=== PATIENT | male | born 1995 | race Caucasian/White ===

== ENCOUNTER 2018-03-12 17:17 | Emergency (ER) | payer BC, SELFPAY ==
[2018-03-12 17:18] VITALS: BP 137/74; PULSE 72; RESP 18; TEMP 36.9; O2SAT 99; BMI 27.9
--- NOTE | 2018-03-12 18:00 | ED.RN ---
CONTACTED CRISIS, MICHELL WILL BE OVER.
[2018-03-12 18:28] LABS: Absolute Lymphocyte Count 1.66 X10^3/ul (0.83-4.51); Absolute Neutrophil Count 2.9 X10^3/uL (2.0-7.7); Basophil# 0.02 X10^3/uL; Basophil% 0.4 % (0-1); Eosinophil# 0.16 X10^3/uL; Eosinophils% 2.9 % (0-5); Hematocrit 44.3 % (40-54); Hemoglobin 15.6 g/dl (13.0-16.5); Lymphocyte # 1.66 X10^3/ul (4.0); Lymphocyte % 30.2 % (19-41); Mean Corp Hgb Conc 35.2 g/gl (32-36); Mean Corpuscular Hgb 29.4 pg (27.0-32.0); Mean Corpuscular Volume 83.6 fL (80-94); Monocyte# 0.75 X10^3/uL; Monocyte% 13.6 % (0-10); Neutrophil % 52.7 % (47-70); Platelet Count 183 K/mm3 (150-450); RBC Distribution Width CV 11.8 % (11.6-14.6); RBC Distribution Width SD 35.9 fl (35.1-43.9); White Blood Count 5.5 K/mm3 (4.4-11.0)
[2018-03-12 18:29] LABS: POSITIVE COUNT NO; POSITIVE DIFFERENTIAL NO; POSITIVE MORPHOLOGY NO
[2018-03-12 18:44] VITALS: BP 130/74; PULSE 80; RESP 18; O2SAT 99
[2018-03-12 18:53] LABS: ALB/GLOB Ratio 1.4 RATIO (0.9-2.4); AST(SGOT) 14 U/L (15-37); Alanine Aminotransfer ALT/SGPT 25 U/L (16-61); Albumin, Serum 4.6 g/dL (3.2-5.0); Alkaline Phosphatase 66 U/L (45-117); Anion Gap 10 (5-15); BUN 18 mg/dL (7-18); BUN/Creat Ratio 14.2 RATIO (10-20); Calcium,Total 8.9 mg/dL (8.5-10.1); Chloride 103 mmol/L (98-107); Creatinine, Serum 1.27 mg/dL (0.70-1.30); EST Glomerular Filtration Rate 75 mL/min (>60); Est Glom Filt Rate - Afr Amer 91 mL/min (>60); Estimated Creatinine Clearance 88.27 ml/min; Globulin 3.2 g/dL (2.2-4.2); Glucose 88 mg/dL (74-106); Potassium 3.6 mmol/L (3.5-5.1); Protein, Total 7.8 g/dL (6.4-8.2); Sodium Level 142 mmol/L (136-145); Thyroid Stim Hormone (TSH) 0.69 uIU/mL (0.358-3.74)
--- NOTE | 2018-03-12 18:59 | ED.RN ---
CRISIS IS HERE.
[2018-03-12 19:00] LABS: Alcohol, Blood (Medical)-Serum < 3.0 mg/dL
[2018-03-12 19:30] LABS: Amphetamine Urine VISTA POSITIVE (<1000 ng/mL); Barbiturate Urine VISTA NEGATIVE (< 200 ng/mL); Benzodiazepine Urine VISTA NEGATIVE (< 200 ng/mL); Cocaine Urine VISTA POSITIVE (< 300 ng/mL); Ecstacy Urine VISTA NEGATIVE (< 500 ng/mL); Methadone Urine VISTA NEGATIVE (< 300 ng/mL); PCP Urine VISTA NEGATIVE (< 25 ng/mL); THC Urine VISTA POSITIVE (< 50 ng/mL); Vista UDS pH Range 6
[2018-03-12 19:37] VITALS: RESP 16
[2018-03-12 20:11] VITALS: RESP 14
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
[2018-03-12 21:59] VITALS: RESP 18
== END 2018-03-12 22:01 | disposition home or self-care (01) ==
PROVIDERS: Emergency Provider Emergency Medicine; Family Provider Family Medicine; PCP Family Medicine
DX: F32.9 Major depressive disorder, single episode, unspecified (principal); G47.00 Insomnia, unspecified; R63.0 Anorexia; R00.2 Palpitations; R51 Headache; T43.625A Adverse effect of amphetamines, initial encounter; Y92.9 Unspecified place or not applicable; Z79.899 Other long term (current) drug therapy
CPT/HCPCS: 36415; 80053; 80307; 80320; 84443; 85025; 99283; G0480

== ENCOUNTER → 2018-07-09 14:32 | Outpatient (CLI) | payer BC, SELFPAY ==
[2018-07-09 16:06] LABS: Absolute Lymphocyte Count 1.69 X10^3/ul (0.83-4.51); Basophil# 0.02 X10^3/uL; Basophil% 0.4 % (0-1); Eosinophil# 0.19 X10^3/uL; Eosinophils% 3.5 % (0-5); Hematocrit 44.2 % (40-54); Hemoglobin 14.9 g/dl (13.0-16.5); Lymphocyte # 1.69 X10^3/ul (4.0); Lymphocyte % 30.8 % (19-41); Mean Corp Hgb Conc 33.7 g/gl (32-36); Mean Corpuscular Hgb 28.8 pg (27.0-32.0); Mean Corpuscular Volume 85.3 fL (80-94); Mean Platelet Vol. 9.5 fl (6.2-12.0); Monocyte# 0.58 X10^3/uL; Monocyte% 10.6 % (0-10); Neutrophil % 54.5 % (47-70); Platelet Count 249 K/mm3 (150-450); RBC Distribution Width CV 11.9 % (11.6-14.6); RBC Distribution Width SD 37.1 fl (35.1-43.9); Red Blood Count 5.18 M/mm3 (4.6-6.2); White Blood Count 5.5 K/mm3 (4.4-11.0)
[2018-07-09 16:15] LABS: POSITIVE COUNT NO; POSITIVE DIFFERENTIAL NO; POSITIVE MORPHOLOGY NO
[2018-07-09 16:21] LABS: ALB/GLOB Ratio 1.2 RATIO (0.9-2.4); AST(SGOT) 10 U/L (15-37); Alanine Aminotransfer ALT/SGPT 22 U/L (16-61); Albumin, Serum 4.1 g/dL (3.2-5.0); Alkaline Phosphatase 70 U/L (45-117); Anion Gap 8 (5-15); BUN 19 mg/dL (7-18); BUN/Creat Ratio 16.7 RATIO (10-20); CRP < 2.90 mg/L (0.0-3.0); Calcium,Total 9.1 mg/dL (8.5-10.1); Chloride 106 mmol/L (98-107); Creatinine, Serum 1.14 mg/dL (0.70-1.30); EST Glomerular Filtration Rate 85 mL/min (>60); Est Glom Filt Rate - Afr Amer 103 mL/min (>60); Ferritin 169 ng/mL (26-388); Globulin 3.3 g/dL (2.2-4.2); Glucose 79 mg/dL (74-106); Lipase 126 U/L (73-393); Potassium 3.8 mmol/L (3.5-5.1); Protein, Total 7.4 g/dL (6.4-8.2); Sodium Level 141 mmol/L (136-145); Thyroid Stim Hormone (TSH) 1.67 uIU/mL (0.358-3.74)
[2018-07-09 16:35] LABS: Erythrocyte Sedimentation Rate 2 mm/hr (0-15)
[2018-07-11 20:07] LABS: Endomysial Antibody IgA Negative (Negative); HEPATITIS B SURFACE AG Negative (Negative); Hepatitis A AB, Total Negative (Negative); Hepatitis A IgM Antibody Negative (Negative); Hepatitis B Core AB IgM Negative (Negative); Hepatitis B Core Ab Total Negative (Negative); Hepatitis C Ab <0.1 s/co ratio (0.0-0.9); Immunoglobulin A 116 mg/dL (90-386)
[2018-07-12 12:32] LABS: Deamidated Gliadin IgA 4 units (0-19); Deamidated Gliadin IgG 4 units (0-19); Hep B Surface Antibodies Non Reactive (.); t-Transglutaminase IgA <2 U/mL (0-3)
== END ==
PROVIDERS: Family Provider Family Medicine; PCP Family Medicine; Referring Provider Family Medicine; Visit Provider Family Medicine
DX: R19.7 Diarrhea, unspecified (principal); R10.32 Left lower quadrant pain
CPT/HCPCS: 80053; 82728; 82784; 83516; 83690; 84443; 85025; 85652; 86140; 86255; 86704; 86705; 86706; 86708; 86709; 86803; 87340

== ENCOUNTER → 2018-10-07 16:00 | Outpatient (CLI) | payer BC, SELFPAY ==
[2018-10-07 17:33] LABS: Hematocrit 44.3 % (40-54); Mean Corp Hgb Conc 33.9 g/gl (32-36); Mean Corpuscular Hgb 28.9 pg (27.0-32.0); Mean Corpuscular Volume 85.4 fL (80-94); Mean Platelet Vol. 9.7 fl (6.2-12.0); Platelet Count 223 K/mm3 (150-450); RBC Distribution Width CV 12.2 % (11.6-14.6); RBC Distribution Width SD 37.8 fl (35.1-43.9); Red Blood Count 5.19 M/mm3 (4.6-6.2); White Blood Count 6.5 K/mm3 (4.4-11.0)
[2018-10-07 17:49] LABS: ALB/GLOB Ratio 1.2 RATIO (0.9-2.4); AST(SGOT) 15 U/L (15-37); Alanine Aminotransfer ALT/SGPT 25 U/L (16-61); Alkaline Phosphatase 77 U/L (45-117); Anion Gap 10 (5-15); BUN 12 mg/dL (7-18); Calcium,Total 8.9 mg/dL (8.5-10.1); Chloride 106 mmol/L (98-107); Creatinine, Serum 0.92 mg/dL (0.70-1.30); EST Glomerular Filtration Rate 108 mL/min (>60); Est Glom Filt Rate - Afr Amer 131 mL/min (>60); Globulin 3.3 g/dL (2.2-4.2); Glucose 77 mg/dL (74-106); Potassium 3.9 mmol/L (3.5-5.1); Protein, Total 7.3 g/dL (6.4-8.2); Sodium Level 141 mmol/L (136-145)
[2018-10-07 17:59] LABS: Erythrocyte Sedimentation Rate 8 mm/hr (0-15)
[2018-10-07 18:02] LABS: Internal QC Validated? YES +Cl - CLEAR BKGD; Monotest Negative (Negative)
[2018-10-07 18:04] LABS: Scan Indicated on CBC? Y/N NO
[2018-10-10 11:19] LABS: CMV Acute Antibody IgM < 30.0 AU/mL (0.0-29.9); CMV Antibody IgG < 0.60 U/mL (0.00-0.59); EBV Acute VCA IgM < 36.0 U/mL (0.0-35.9); EBV Early Antigen IgG <9.0 U/mL (0.0-8.9)
== END ==
PROVIDERS: Family Provider Family Medicine; PCP Family Medicine; Visit Provider Family Medicine
DX: J02.9 Acute pharyngitis, unspecified (principal)
CPT/HCPCS: 36415; 80053; 85027; 85652; 86308; 86644; 86645; 86663; 86664; 86665; 87070

== ENCOUNTER → 2018-10-12 09:10 | Outpatient (CLI) | payer BC, SELFPAY ==
--- NOTE | 2018-10-12 09:14 | US_ITS ---
STUDY: ABDOMINAL ULTRASOUND -LEFT UPPER QUADRANT REASON FOR VISIT: Male, 22 years old. Recent exposure to mononucleosis, left upper quadrant pain TECHNIQUE: Ultrasound evaluation of the right upper quadrant was performed with real-time and static ayala-scale imaging. TECHNICAL QUALITY: Limited. Limited acoustical window between ribs. COMPARISON: None. FINDINGS: Spleen: The spleen measures 10.5 x 7.8 x 3.6 cm. There is normal echogenicity of the spleen. No perisplenic fluid collection. There is no demonstrated mass lesion. US/Spleen IMPRESSION: Normal sonographic appearance of the spleen. Electronically Signed: Dung Hernandez MD at 12:20 EST , Service support ,
--- NOTE | 2018-10-12 09:14 | US_ITS ---
STUDY: ABDOMINAL ULTRASOUND - RIGHT UPPER QUADRANT REASON FOR VISIT: Male, 22 years old. Right upper quadrant pain, emesis a week ago TECHNIQUE: Ultrasound evaluation of the right upper quadrant was performed with real-time and static ayala-scale imaging. TECHNICAL QUALITY: Adequate. COMPARISON: None. FINDINGS: Liver: The liver measures 14 cm. There is normal echogenicity of the liver. The bile ducts are within normal limits. There is hepatic color flow. The direction of portal flow is hepatopetal. There is no demonstrated mass lesion. Gallbladder: Normal distended gallbladder. The gallbladder wall measures 2.4 mm. There is a negative sonographic Adams's sign. There is no pericholecystic fluid. There are no gallstones. Common Bile Duct (C.B.D.): The common bile duct measures 5.7 mm. Pancreas: There is normal echogenicity of the visualized pancreas. There is no demonstrated pancreatic mass or cyst. Right Kidney: Normal size of the right kidney. The right kidney measures 11.4 cm. Normal renal cortex. The right cortex measures 1.7 cm. There is no demonstrated renal mass or cyst. There is no right hydronephrosis. US/Abdomen Limited IMPRESSION: 1. Normal right upper quadrant ultrasound examination. Electronically Signed: Dung Hernandez MD at 12:19 EST , Service support ,
== END ==
PROVIDERS: Family Provider Family Medicine; PCP Family Medicine; Referring Provider Family Medicine; Visit Provider Family Medicine
DX: R10.811 Right upper quadrant abdominal tenderness (principal)
CPT/HCPCS: 76705

== ENCOUNTER → 2018-11-25 12:42 | Outpatient (CLI) | payer BC, SELFPAY ==
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
== END ==
PROVIDERS: Family Provider Family Medicine; PCP Family Medicine; Referring Provider Family Medicine; Visit Provider Family Medicine
DX: S60.012A Contusion of left thumb without damage to nail, initial encounter (principal); X58.XXXA Exposure to other specified factors, initial encounter; Y93.9 Activity, unspecified; Y92.9 Unspecified place or not applicable; Y99.9 Unspecified external cause status
CPT/HCPCS: 73130

== ENCOUNTER 2019-05-20 16:18 | Emergency (ER) | payer BC, SELFPAY ==
[2019-05-20 16:18] VITALS: BP 136/83; PULSE 74; RESP 16; TEMP 36.8; O2SAT 98; BMI 32.4
--- NOTE | 2019-05-20 17:08 | ED.DCSUM_ITS ---
History of Present Illness Chief Complaint: Laceration Informant: Patient Onset: Today - 07:00 Context: Sudden Onset Timing: Continuous Quality: Laceration tip right thumb Location: Tip right norm Current Severity: Mild Maximum Severity: Mild Worsened by: Blunt trauma Relieved by: Nothing Associated Symptoms: No associated symptoms Narrative: Patient is a 23-year-old [id number] male presents with laceration the tip of his right thumb. The occurred at 0700. States his thumb was pinched between doorframe and door. Tetanus is not up-to-date. He denies paresthesia, anesthesia motors. He is a construction equipment mechanic helper. He was able to work today without limitations. Prior similar symptoms: No Recent Illness/Hospitalization: No - Past Medical History (1) No significant past medical history Status: Acute Past Medical History - Allergies and Home Meds Allergies/Adverse Reactions: Allergies No Known Allergies Allergy (Verified 05/20/19 16:20) Primary Care Physician: Bony Magallon MD [Primary Care Provider] - Prior records reviewed: No Past Medical History: None Surgical History: no surgical history, - - Left shoulder labral repair ?2 (Dr. Daniels) Lives: Alone Smoking Status: Never smoker Drugs: None Review of Systems General: Denies: Chills, Fever Musculoskeletal: Denies: Myalgias, Arthralgias, Swelling, Extremity Pain Skin: Reports: Wounds. Denies: Rash, Abscess Neurological: Denies: Weakness, Parasthesia, Numbness Hematologic: Denies: Easy bruising, Easy bleeding Physical Exam Vital Signs/Narrative: Vital Signs Temp Pulse Resp BP Pulse Ox 05/20/19 16:18 98.2 F 74 16 136/83 H 98 General: Well nourished, Well developed, No Acute Distress Head: Normocephalic, Atraumatic Eyes: Perrl, EOMI ENT: Moist mucous membranes, No rhinorrhea Cardiovascular: Regular rate, Regular rhythm Respiratory: No distress Extremities: Nontender, No edema Skin: Normal color, No rash, Trauma, -. Negative for: Cyanosis, Diaphoresis, Jaundice Neurological: Alert, Oriented x3, Cranial nerves II-XII grossly intact, Normal Strength, Normal Sensation Psychological: Normal affect, Normal Mood Diagnostic/Tx/Re-eval - Medical Decision Making Patient has a laceration which is less than 1 cm Tip of the right thumb. The wound is healthy with dark. There is concern for early infection. There is no evidence of cellulitis and there is no lymphangitis. There is no subungual hematoma noted. Extensor and flexor mechanism intact. Capillary refill is normal. Sensation is normal. Will update tetanus. He was prescribed cephalexin and wound was not sutured closed since the injury occurred 10 hours ago and is concern for infection ED Disposition - Plan for ED Patient: Disposition: Home or Assisted Living Diagnosis: Laceration of right thumb with infection Instructions: LACERATION, Infected (Not Sutured) Prescriptions: Cephalexin [Keflex] 500 mg PO Q6 #20 cap Prescription Printed Referrals: Bony Magallon MD [Primary Care Provider] - 2 Days for wound check
[2019-05-20] MEDS: Cephalexin 250 MG Capsule 500 MG PO (17:22)
[2019-05-20] MEDS: Diphth,Pertuss(Acell),Tet Vac 0.5 ML Vial IM (17:23)
== END 2019-05-20 17:32 | disposition home or self-care (01) ==
LOC: ED 17:24
PROVIDERS: Emergency Provider Emergency Medicine; Family Provider Family Medicine; PCP Family Medicine
DX: S61.011A Laceration without foreign body of right thumb without damage to nail, initial encounter (principal); B99.9 Unspecified infectious disease; W23.0XXA Caught, crushed, jammed, or pinched between moving objects, initial encounter; Y93.9 Activity, unspecified; Y92.9 Unspecified place or not applicable; Y99.9 Unspecified external cause status; Z23 Encounter for immunization
CPT/HCPCS: 90471; 90715; 99282

== ENCOUNTER 2020-12-20 14:48 | Emergency (ER) | payer BC, SELFPAY ==
[2020-12-20 14:49] VITALS: BP 158/86; PULSE 84; RESP 18; TEMP 36.4; O2SAT 97; BMI 36.2
[2020-12-20 15:16] LABS: Absolute Lymphocyte Count 1.54 X10^3/uL (0.83-4.51); Absolute Neutrophil Count 5.1 X10^3/uL (2.0-7.7); Basophil# 0.03 X10^3/uL; Basophil% 0.4 % (0-1); Eosinophil# 0.08 X10^3/uL; Hemoglobin 15.8 g/dL (13.0-16.5); Lymphocyte # 1.54 X10^3/ul (4.0); Mean Corp Hgb Conc 34.3 g/dL (32-36); Mean Corpuscular Volume 81.6 fL (80-94); Mean Platelet Vol. 9.2 fl (6.2-12.0); Monocyte# 0.85 X10^3/uL; Monocyte% 11.1 % (0-10); NRBC Flagged by Analyzer 0 % (0-5); Neutrophil # 5.12 X10^3/uL (2.7-7.7); Neutrophil % 66.6 % (47-70); Platelet Count 254 K/mm3 (150-450); RBC Distribution Width CV 11.9 % (11.6-14.6); Red Blood Count 5.64 M/mm3 (4.6-6.2); White Blood Count 7.7 K/mm3 (4.4-11.0)
[2020-12-20 15:30] LABS: Anion Gap 5 (5-15); BUN 13 mg/dL (7-18); BUN/Creat Ratio 14.2 RATIO (10-20); Calcium,Total 9.3 mg/dL (8.5-10.1); Chloride 104 mmol/L (98-107); Creatinine, Serum 0.92 mg/dL (0.70-1.30); EST Glomerular Filtration Rate 107 mL/min (>60); Est Glom Filt Rate - Afr Amer 129 mL/min (>60); Estimated Creatinine Clearance 118.75 ml/min; Glucose 97 mg/dL (74-106); Potassium 3.5 mmol/L (3.5-5.1); Sodium Level 136 mmol/L (136-145)
[2020-12-20 15:52] LABS: Red Blood Cells-Urine 0 SEEN /hpf (0-5); Squamous Epithelial Cells - UA 0 SEEN /hpf (0-5); White Blood Cells 0 SEEN /hpf (0-5)
[2020-12-20 15:54] LABS: Color, Urine Yellow (Yellow); Glucose, Dipstick Normal (Normal); Ketone-Dipstick Negative (Negative); Leukocyte Esterase-Dipstick Negative /ul (Negative); Nitrite-Dipstick Negative (Negative); Occult Blood-Urine Negative /ul (Negative); Protein-Dipstick 15 mg/dl (Negative); Specific Gravity, Urine 1.025 (1.002-1.030); Urine Bilirubin Dipstick Negative (Negative); Urine Clarity Clear (Clear); Urine Urobilinogen Normal (Normal)
--- NOTE | 2020-12-20 16:10 | CT_ITS ---
STUDY: CT ABDOMEN AND PELVIS WITH CONTRAST REASON FOR EXAM: Male, 25 years old. RLQ Pain RADIATION DOSAGE (If Supplied By Facility): CTDIvol = ( 13.915 ) mGy, DLP = ( 1045.99 ) mGycm TECHNIQUE: Transaxial images were obtained from the dome of the diaphragm to the symphysis pubis with oral contrast. Oral and amp; IV GASTROGRAFIN and amp; 100ML ISOVUE 300 was administered. Sagittal and coronal images were reconstructed. Individualized dose optimization techniques were used for this CT. COMPARISON: Previous ultrasounds FINDINGS: The visualized lung bases are unremarkable. The visualized portions of the heart are within normal limits. Normal liver. Normal gallbladder and extrahepatic biliary system. Normal spleen. Normal pancreas. Normal bilateral adrenal glands. Normal right kidney. Normal left kidney. Normal visualized stomach. Normal small intestine. Retained stool noted throughout the colon The appendix is visualized and appears normal. Appendix best seen on coronal recon images 65 through 70 Normal abdominal aorta. Normal inferior vena cava. Normal retroperitoneum. Normal urinary bladder. Normal abdominal wall. Normal osseous structures. CT/Abdomen/Pelvis WITH Contrast IMPRESSION: No suspicious solid organ abnormality No free intraperitoneal fluid, air, or suspicious adenopathy Retained stool in the colon Electronically Signed: Davion Ruby MD at 19:08 EDT , Service support ,
--- NOTE | 2020-12-20 16:12 | ED.DCSUM_ITS ---
History of Present Illness Chief Complaint: Abd Pain Informant: Patient Narrative: 25-year-old male presenting with right lower quadrant pain since . He states is progressively worse. Started off with diarrhea. He states he had a low-grade fever at home of 99.5. Seems to have resolved. She has nausea without vomiting. He states his pain is 6 out of 10. No history of kidney stones. Past Medical History - Allergies and Home Meds Allergies/Adverse Reactions: Allergies No Known Allergies Allergy (Verified 12/20/20 14:52) Primary Care Physician: Bony Magallon MD [Primary Care Provider] - Prior records reviewed: Yes Surgical History: no surgical history, - - Left shoulder labral repair ?2 (Dr. Daniels) Lives: Alone Smoking Status: Current some day smoker Alcohol: None Drugs: None Review of Systems General: Reports: Fever. Denies: Malaise Eyes: Denies: Visual changes - bilaterally, Diplopia ENT: Denies: Rhinorrhea, Sore throat Cardiovascular: Denies: Chest pain, Palpitations Respiratory: Denies: Dyspnea, Cough, Dyspnea on exertion Gastrointestinal: Reports: Abdominal pain, Nausea, Diarrhea. Denies: Vomiting, Constipation Genitourinary: Reports: Dysuria. Denies: Hematuria, Frequency Musculoskeletal: Denies: Back pain, Extremity Pain Skin: Denies: Rash, Wounds Neurological: Denies: Headache, Weakness, Numbness Psych: Denies: Depression, Anxiety, Suicidal thoughts, Suicidal ideations, -, - Physical Exam Vital Signs/Narrative: Vital Signs Temp Pulse Resp BP Pulse Ox 12/20/20 14:49 97.5 F L 84 18 158/86 H 97 Inital Vital Signs reviewed: Yes General: Well nourished, No Acute Distress Head: Normocephalic, Atraumatic Eyes: Perrl, EOMI ENT: Moist mucous membranes, Sinus tenderness Neck: Supple, Nontender Cardiovascular: Regular rate, Regular rhythm Respiratory: No distress, CTA bilaterally Abdomen: Soft, Nondistended, Obturator sign, - - Tenderness palpation of McBurney's point. Rectal: Deferred, Guaiac negative Back: Negative for: CVA tenderness, Spinal tenderness Extremities: Nontender, No edema Skin: Normal color, No rash Neurological: Alert, Oriented x3, Cranial nerves II-XII grossly intact Psychological: Normal affect, Normal Mood Diagnostic/Tx/Re-eval Clinical Impression(s) from Imaging Studies Abdomen/Pelvis CT 12/20/20 16:10 IMPRESSION: No suspicious solid organ abnormality No free intraperitoneal fluid, air, or suspicious adenopathy Retained stool in the colon Electronically Signed: Davion Ruby MD at 19:08 EDT , Service support , Laboratory Data 12/20/20 12/20/20 12/20/20 14:59 14:59 15:47 WBC 7.7 RBC 5.64 Hgb 15.8 Hct 46.0 MCV 81.6 MCH 28.0 MCHC 34.3 RDW Std Deviation 35.0 L RDW Coeff of [place] 11.9 Plt Count 254 MPV 9.2 Immature Gran % (Auto) 0.900 Neut % (Auto) 66.6 Lymph % (Auto) 20.0 [place] % (Auto) 11.1 H Eos % (Auto) 1.0 Baso % (Auto) 0.4 Absolute Neuts (auto) 5.1 Absolute Lymphs (auto) 1.54 Nucleated RBC % 0 Sodium 136 Potassium 3.5 Chloride 104 Carbon Dioxide 27.0 Anion Gap 5 BUN 13 Creatinine 0.92 Estim Creat Clear Calc 118.75 Est GFR (MDRD) Af Amer 129 Est GFR (MDRD) Non-Af 107 BUN/Creatinine Ratio 14.2 Glucose 97 Calcium 9.3 Urine Color Yellow Urine Clarity Clear Urine pH 5.0 Ur Specific [place] 1.025 Urine Protein 15 H Urine Glucose (UA) Normal Urine Ketones Negative Urine Occult Blood Negative Urine Nitrite Negative Urine Bilirubin Negative Urine Urobilinogen Normal Ur Leukocyte Esterase Negative Urine RBC 0 SEEN Urine WBC 0 SEEN Ur Squamous Epith Cells 0 SEEN Urine Bacteria 1+ Urine Mucus 1+ - Medical Decision Making 25-year-old male presenting with right lower quadrant pain. He states that he was seen in urgent care and sent to the ED out of concern for appendicitis. Vital signs are stable he is afebrile. Patient's blood work is all within normal limits. Patient had CT of abdomen pelvis with p.o. and IV contrast which shows concern for constipation. Appendix is visualized and is normal. Patient given magnesium citrate in the ED and given instructions for use. He will be discharged home in stable condition. Impression: 1. Abdominal pain 2. Constipation ED Disposition - Plan for ED Patient: Instructions: ED Constipation (Adult) Referrals: Bony Magallon MD [Primary Care Provider] -
[2020-12-20 16:34] LABS: Bacteria 1+ /hpf (None Seen); Mucous, Urine 1+ /hpf (<or=2+)
[2020-12-20] MEDS: Morphine 4 MG/ML Syringe IV (16:40)
[2020-12-20] MEDS: Ondansetron 4 MG/2 ML Vial IV (16:40)
[2020-12-20] MEDS: 0.9% Normal Saline 1,000 ML 999 ML IV (16:40)
[2020-12-20 16:48] VITALS: BP 148/72; PULSE 81; RESP 18; O2SAT 98
[2020-12-20 18:00] VITALS: BP 126/87; PULSE 69; RESP 18; O2SAT 100
[2020-12-20] MEDS: Magnesium Citrate 300 ML PO (19:35)
== END 2020-12-20 19:36 | disposition home or self-care (01) ==
LOC: ED 16:30
PROVIDERS: Emergency Provider Student in an Organized Health Care Education/Training Program; PCP Family Medicine
DX: R10.31 Right lower quadrant pain (principal); K59.00 Constipation, unspecified; R19.7 Diarrhea, unspecified; R50.9 Fever, unspecified; R11.0 Nausea; R30.0 Dysuria; F17.200 Nicotine dependence, unspecified, uncomplicated
CPT/HCPCS: 74177; 80048; 81001; 85025; 96361; 96374; 96375; 99283; J7030; Q9967; A4216; J2405

== ENCOUNTER 2023-07-06 16:57 | Emergency (ER) | payer OTHER, SELFPAY ==
[2023-07-06 16:58] VITALS: BP 137/89; PULSE 80; RESP 16; TEMP 36.6; O2SAT 98; BMI 35.7
--- NOTE | 2023-07-06 17:12 | US_ITS ---
INDICATION: ;LT TESTICLE PAIN AFTER HEAVY LIFTING EXAMINATION: Ultrasound US Scrotum (Contents) TECHNIQUE: Realtime ultrasound of the testicles was performed with grayscale, Color Doppler and spectral Doppler analysis. COMPARISON: FINDINGS: RIGHT: TESTIS: 4.8 x 3.5 x 2.4 cm. Normal in size and echotexture, without focal lesion. COLOR DOPPLER: Normal arterial flow present in the testicle with monophasic waveforms. EPIDIDYMIS: Normal in size and echotexture, without focal lesion. [Normal color Doppler flow pattern in the epididymis. HYDROCELE: Mild. VARICOCELE: None. LEFT: TESTIS: 4.5 x 2.9 x 2.0 cm. Normal in size and echotexture, without focal lesion. COLOR DOPPLER: Normal arterial flow present in the testicle with monophasic waveforms. EPIDIDYMIS: Normal in size and echotexture, without focal lesion. [Normal color Doppler flow pattern in the epididymis. HYDROCELE: Moderate complex with debris. VARICOCELE: None. US/Testicular with Arterial Flow IMPRESSION: Unremarkable bilateral testicular ultrasound. Small right hydrocele. Complex moderate left hydrocele with debris. Electronically Signed: Miguel Eduardo DO at 17:50 EDT Reading Location ID and State: [facility] / [place] Tel [phone], Service support ,
--- NOTE | 2023-07-06 18:09 | EX.ED.GUMALE ---
HPI History of Present Illness Chief Complaint: Male Pain/Injury PFSH PFS Home Medications NK 12/20/20 [History Last Taken Unknown] Allergy/AdvReac Type Severity Reaction Status Date / Time No Known Allergies Allergy Verified 07/06/23 16:58 Social History Smoking Status: Current some day smoker tobacco type: cigarettes EXAM Physical Exam Const Vital Signs: 07/06/23 16:58 Temperature 97.8 F Temperature Source Temporal Pulse Rate 80 Respiratory Rate 16 Blood Pressure 137/89 H Blood Pressure Mean 105 Pulse Ox 98 Oxygen Delivery Method Room Air [facility] [place] Narrative Medical decision making narrative: HISTORY OF PRESENT ILLNESS: 27-year-old male here with concern for testicular pain. States he was lifting heavy object and felt a pop. He was seen by urgent care was sent into the ED for an ultrasound. Patient with severe left inguinal/testicular pain. Worse with movement or palpation. Denies history abdominal surgeries. REVIEW OF SYSTEMS: Pertinent positives: Testicular pain, abdominal pain Pertinent negatives: Nausea, fever PHYSICAL EXAM: Nursing triage notes reviewed, Vital signs reviewed Constitutional: please see mdm HENT: MMM Eyes: Pupils equal round and reactive to light, Extraocular muscles intact Neck: No stridor, no JVD, full neck ROM Lungs: Clear to auscultation, No wheezing or rales. No increased work of breathing, no conversational dyspnea, no accessory muscle use, no nasal flaring. No respiratory distress noted Heart: Regular rate and rhythm, No murmurs, No rubs and No gallops, 2+ distal pulses (radial, femoral, posterior tibial) in all extremities Abdomen: Soft, there is no tenderness, no obvious hernia noted, no overlying skin changes rigidity, rebound or guarding, no obvious peritoneal signs, no palpable pulsatile abdominal masses, no auscultated abdominal bruit : No CVAT left testicular TTP, normal testicular lie, Extremities: No edema Neuro: No focal neurological deficits, cranial nerves II through XII intact, 5/5 strength in all extremities. Intact sensation to light touch in all extremities, 2+ reflexes bilateral patella tendons. Normal gait. No ataxia. Skin: No rash or lesions noted MEDICAL DECISION MAKING: Chief Complaint: Testicular pain External records reviewed: No recent advanced imaging of the testicle noted Factors affecting care: none Social determinants of health: none History obtained from others: none Consults: none [facility] Narrative: Hemodynamically stable, afebrile, nontoxic-appearing. Abdominal exam with no peritoneal signs, TTP over left testicle with no palpable herniated mass. I considered the following differential diagnosis: Testicular torsion, orchitis, epididymitis, incarcerated hernia, muscle strain I obtained a broad lab and imaging work-up to further elucidate etiology patient complaints. Give the patient IV fluids and Toradol for pain control and rehydration ALL IMAGES (IF OBTAINED) HAVE BEEN PERSONALLY REVIEWED AND INTERPRETED BY MYSELF. CBC without leukocytosis, severe anemia, no thrombocytopenia. BMP without evidence of significant electrolyte abnormalities, no anion gap, no acute kidney injury. Urinalysis shows no evidence of urinary inflammation suggestive of UTI CT scan of the abdomen pelvis shows acute intra-abdominal abnormalities Scrotal ultrasound shows no evidence of orchitis shows evidence of a left hydrocele The synthesis of the patient's history, physical exam, labs and images suggest no acute life-limiting etiology specifically no evidence of incarcerated hernia, testicular torsion. Etiology could be hydrocele. The patient may still have abdominal herniation however there is no evidence of incarceration at this time. His symptoms may be secondary to musculoskeletal etiology such as muscle sprain. He is instructed follow-up with general surgery and to return if symptoms change or worsen specifically if you develop vomiting, does not have bowel movements or displays constipation or develops severe abdominal pain. The patient and/or family, caregivers express understanding. The patient and/or family, caregivers agrees with the plan. Shared decision making: I will have a discussion with the patient and or visitors regarding risk/benefits of further testing or admission. They will be made aware of of the risk/benefits inherent in this decision they will be given the opportunity to voice understanding. Total critical care time today provided was at least 0 minutes. This excludes separately billable procedures. Critical care time (if documented) is secondary to the patient having high probability of clinically significant/life threatening deterioration in the patient's condition which required my urgent intervention. Impression: 1. Left testicular pain 2. Hydrocele Dispo: Discharge Lab Data Labs: Laboratory Results - last 24 hr 07/06/23 07/06/23 18:40 20:10 WBC 9.1 RBC 5.17 Hgb 14.8 Hct 43.1 MCV 83.4 MCH 28.6 MCHC 34.3 RDW Std Deviation 35.5 RDW Coeff of [place] 11.7 Plt Count 269 MPV 9.4 Immature Gran % (Auto) 0.600 Neut % (Auto) 67.1 Lymph % (Auto) 20.9 [place] % (Auto) 10.1 H Eos % (Auto) 0.9 Baso % (Auto) 0.4 Absolute Neuts (auto) 6.1 Absolute Lymphs (auto) 1.90 Nucleated RBC % 0 Sodium 139 Potassium 3.9 Chloride 104 Carbon Dioxide 27.0 Anion Gap 8 BUN 19 H Creatinine 0.92 Estim Creat Clear Calc 116.68 Est GFR (MDRD) Af Amer 126 Est GFR (MDRD) Non-Af 104 BUN/Creatinine Ratio 20.6 H Glucose 93 Calcium 9.3 Urine Color Yellow Urine Clarity Clear Urine pH 6.5 Ur Specific [place] 1.020 Urine Protein 15 H Urine Glucose (UA) Normal Urine Ketones Negative Urine Occult Blood Negative Urine Nitrite Negative Urine Bilirubin Negative Urine Urobilinogen Normal Ur Leukocyte Esterase Negative Radiography Diagnostic Testing: Clinical Impression(s) from Imaging Studies Testicular Ultrasound 07/06/23 17:12 IMPRESSION: Unremarkable bilateral testicular ultrasound. Small right hydrocele. Complex moderate left hydrocele with debris. Electronically Signed: Miguel Eduardo DO at 17:50 EDT , Abdomen CT 07/06/23 18:27 IMPRESSION: Small fatty umbilical hernia. Electronically Signed: Miguel Eduardo DO at 20:15 EDT , Discharge Plan Triage Chief Complaint: Male Pain/Injury ED Provider: Pb Benavidez Dx/Rx/DC Orders Instructions: ED Hydrocele Non-Communicating Type Prescriptions: No Action NK Primary Care Provider: Bony Magallon Referrals: Shubham Lloyd MD [Med Staff - Active Staff] - Sabino Sanchez MD [Med Staff - Active Staff] - Activity Restrictions/Additional Instructions: Thank you for trusting us with your care today! Please take Tylenol (2 pills, 650 mg), ibuprofen (2 pills, 400 mg) every 6 hours as needed for pain and fever control. Please return to the emergency department if your symptoms change or worsen. Please follow with your primary care physician for further outpatient evaluation and management. Disposition Disposition: Home, Self Care Discharge Date/Time: 07/06/23 21:07
--- NOTE | 2023-07-06 18:27 | CT_ITS ---
STUDY: CT ABDOMEN AND PELVIS WITHOUT CONTRAST REASON FOR EXAM: Male, 27 years old. Left inguinal/testicular pain r/o hernia RADIATION DOSAGE (If Supplied By Facility): CTDIvol = ( 15.91 ) mGy, DLP = ( 942.31 ) mGycm TECHNIQUE: Transaxial images were obtained from the dome of the diaphragm to the symphysis pubis without oral contrast, and without intravenous contrast. Sagittal and coronal images were reconstructed. Individualized dose optimization techniques were used for this CT. COMPARISON: None. FINDINGS: The visualized lung bases are unremarkable. The visualized portions of the heart are within normal limits. Normal liver. Normal gallbladder and extrahepatic biliary system. Normal spleen. Normal pancreas. Normal bilateral adrenal glands. Normal right kidney. Normal left kidney. Normal visualized stomach. Normal small intestine. Normal colon. The appendix is visualized and appears normal. Normal abdominal aorta. Normal inferior vena cava. Normal retroperitoneum. Normal urinary bladder. Small fatty umbilical hernia. Spondylolysis or of L5. CT/Abdomen/Pel W ORAL Cont Only IMPRESSION: Small fatty umbilical hernia. Electronically Signed: Miguel Eduardo DO at 20:15 EDT Reading Location ID and State: [facility] / [place] Tel [phone], Service support ,
[2023-07-06] MEDS: 0.9% Normal Saline (1000mL) 1,000 ML 999 ML IV (18:40)
[2023-07-06] MEDS: Ketorolac 15 MG/ML Vial IV (18:40)
[2023-07-06 19:01] LABS: Absolute Neutrophil Count 6.1 X10^3/uL (2.0-7.7); Basophil# 0.04 X10^3/uL; Basophil% 0.4 % (0-1); Eosinophil# 0.08 X10^3/uL; Eosinophils% 0.9 % (0-5); Hematocrit 43.1 % (40-54); Hemoglobin 14.8 g/dL (13.0-16.5); Lymphocyte % 20.9 % (19-41); Mean Corp Hgb Conc 34.3 g/dL (32-36); Mean Corpuscular Hgb 28.6 pg (27.0-32.0); Mean Corpuscular Volume 83.4 fL (80-94); Mean Platelet Vol. 9.4 fl (6.2-12.0); Monocyte# 0.92 X10^3/uL; Monocyte% 10.1 % (0-10); NRBC Flagged by Analyzer 0 % (0-5); Neutrophil % 67.1 % (47-70); Platelet Count 269 K/mm3 (150-450); RBC Distribution Width CV 11.7 % (11.6-14.6); RBC Distribution Width SD 35.5 fl (35.1-43.9); Red Blood Count 5.17 M/mm3 (4.6-6.2); White Blood Count 9.1 K/mm3 (4.4-11.0)
[2023-07-06 19:23] LABS: Anion Gap 8 (5-15); BUN 19 mg/dL (7-18); BUN/Creat Ratio 20.6 RATIO (10-20); Calcium,Total 9.3 mg/dL (8.5-10.1); Chloride 104 mmol/L (98-107); Creatinine, Serum 0.92 mg/dL (0.70-1.30); EST Glomerular Filtration Rate 104 mL/min (>60); Est Glom Filt Rate - Afr Amer 126 mL/min (>60); Estimated Creatinine Clearance 116.68 ml/min; Glucose 93 mg/dL (74-106); Potassium 3.9 mmol/L (3.5-5.1); Sodium Level 139 mmol/L (136-145)
[2023-07-06 20:25] LABS: Color, Urine Yellow (Yellow); Glucose, Dipstick Normal (Normal); Ketone-Dipstick Negative (Negative); Leukocyte Esterase-Dipstick Negative /ul (Negative); Nitrite-Dipstick Negative (Negative); Occult Blood-Urine Negative /ul (Negative); Protein-Dipstick 15 mg/dl (Negative); Urine Bilirubin Dipstick Negative (Negative); Urine Clarity Clear (Clear); Urine Urobilinogen Normal (Normal); Urine pH 6.5 (5.0 - 8.0)
== END 2023-07-06 21:07 | disposition home or self-care (01) ==
PROVIDERS: Emergency Provider Emergency Medicine; PCP Family Medicine; Visit Provider Emergency Medicine
DX: N50.812 Left testicular pain (principal); F17.210 Nicotine dependence, cigarettes, uncomplicated; N43.3 Hydrocele, unspecified; K42.9 Umbilical hernia without obstruction or gangrene
CPT/HCPCS: 74176; 76870; 80048; 81002; 85025; 93976; 96361; 96374; 99283; J7030; A4216

== ENCOUNTER → 2024-06-26 | Outpatient (CLI) | payer BC, SELFPAY ==
[2024-06-26 17:11] LABS: Absolute Lymphocyte Count 1.92 X10^3/uL (0.83-4.51); Absolute Neutrophil Count 3.2 X10^3/uL (2.0-7.7); Basophil# 0.05 X10^3/uL; Basophil% 0.8 % (0-1); Eosinophil# 0.15 X10^3/uL; Eosinophils% 2.5 % (0-5); Hematocrit 46.5 % (40-54); Hemoglobin 15.5 g/dL (13.0-16.5); Lymphocyte # 1.92 X10^3/ul (0.83-4.51); Lymphocyte % 31.6 % (19-41); Mean Corp Hgb Conc 33.3 g/dL (32-36); Mean Corpuscular Hgb 27.7 pg (27.0-32.0); Mean Corpuscular Volume 83.2 fL (80-94); Mean Platelet Vol. 9.4 fl (6.2-12.0); Monocyte# 0.74 X10^3/uL; Monocyte% 12.2 % (0-10); NRBC Flagged by Analyzer 0 % (0-5); Neutrophil # 3.16 X10^3/uL (2.7-7.7); Neutrophil % 52.1 % (47-70); Platelet Count 289 K/mm3 (150-450); RBC Distribution Width CV 13.2 % (11.6-14.6); RBC Distribution Width SD 40.6 fl (35.1-43.9); Red Blood Count 5.59 M/mm3 (4.6-6.2); White Blood Count 6.1 K/mm3 (4.4-11.0)
[2024-06-26 17:31] LABS: Hemoglobin A1c 5.1 % (3.8-5.6)
[2024-06-26 17:35] LABS: ALB/GLOB Ratio 1.1 RATIO (0.9-2.4); AST(SGOT) 15 U/L (15-37); Alanine Aminotransfer ALT/SGPT 27 U/L (16-61); Albumin, Serum 3.9 g/dL (3.2-5.0); Alkaline Phosphatase 82 U/L (45-117); Anion Gap 6 (5-15); BUN 18 mg/dL (7-18); BUN/Creat Ratio 21.6 RATIO (10-20); Calcium,Total 9.3 mg/dL (8.5-10.1); Chloride 105 mmol/L (98-107); Cholesterol 163 mg/dL (200); Creatinine, Serum 0.84 mg/dL (0.70-1.30); EST Glomerular Filtration Rate 116 mL/min (>60); Est Glom Filt Rate - Afr Amer 140 mL/min (>60); Globulin 3.4 g/dL (2.2-4.2); Glucose 89 mg/dL (74-106); High Density Lipoprotein 70 mg/dL; Potassium 4.2 mmol/L (3.5-5.1); Protein, Total 7.3 g/dL (6.4-8.2); Sodium Level 137 mmol/L (136-145); Triglycerides 120 mg/dL; Very Low Density Lipoprotein 24 mg/dL (5-40)
[2024-06-27 11:42] LABS: HIV - WCH Non-Reactive (Nonreactive); Syphilis Antibodies Non-reactive; Vitamin B12 459 pg/mL (211-911); Vitamin D,25 Hydroxy 33.7 ng/mL
== END | disposition home or self-care (01) ==
PROVIDERS: PCP Nurse Practitioner Family; Visit Provider Nurse Practitioner Family
DX: Z00.00 Encounter for general adult medical examination without abnormal findings (principal); E56.9 Vitamin deficiency, unspecified
CPT/HCPCS: 36415; 80053; 80061; 82306; 82607; 83036; 84443; 85025; 86703; 86780; 87491; 87591; 87661

== ENCOUNTER → 2024-11-26 | Outpatient (CLI) | payer OTHER, SELFPAY | END | disposition home or self-care (01) | LOC: VSLAB 10:56 | PROVIDERS: PCP Nurse Practitioner Family; Visit Provider Nurse Practitioner Family | DX: E29.1 Testicular hypofunction (principal); Z13.228 Encounter for screening for other metabolic disorders | CPT/HCPCS: 36415; 84402; 84403; 84443; 86376 ==

== ENCOUNTER → 2025-07-03 | Outpatient (CLI) | payer OTHER, SELFPAY ==
[2025-07-03 15:05] LABS: Hematocrit 49.0 % (40-54); Hemoglobin 16.7 g/dL (13.0-16.5); Immature Granulocytes Count 0.020 X10^3/uL (0.0-0.0); Mean Corp Hgb Conc 34.1 g/dL (32-36); Mean Corpuscular Volume 84.0 fL (80-94); Mean Platelet Vol. 10.5 fl (6.2-12.0); NRBC Flagged by Analyzer 0 % (0-5); Platelet Count 258 K/mm3 (150-450); RBC Distribution Width CV 12.6 % (11.6-14.6); RBC Distribution Width SD 38.5 fl (35.1-43.9); Red Blood Count 5.83 M/mm3 (4.6-6.2); White Blood Count 5.6 K/mm3 (4.4-11.0)
[2025-07-03 15:29] LABS: Cholesterol 152 mg/dL (<=200); Low Density Lipoprotein Calc. 83 mg/dL; Triglycerides 74 mg/dL; Very Low Density Lipoprotein 15 mg/dL (5-40); cholesterol:hdl ratio screen 2.79
[2025-07-03 16:06] LABS: AST(SGOT) 32 U/L (<=37); Alanine Aminotransfer ALT/SGPT 30 U/L (<=46); Albumin, Serum 4.8 g/dL (3.5-5.0); Alkaline Phosphatase 49 U/L (40-129); Anion Gap 10 (5-15); BUN 18 mg/dL (4-19); BUN/Creat Ratio 16.0 RATIO (10-20); Calcium,Total 9.8 mg/dL (7.6-11.0); Carbon Dioxide 26.7 mmol/L (21.0-32.0); Chloride 101 mmol/L (98-108); Globulin 2.7 g/dL (2.2-4.2); Glucose 94 mg/dL (70-99); Potassium 5.1 mmol/L (3.3-5.1)
[2025-07-08 11:09] LABS: Testosterone, % Free 3.50 % (1.50-4.20); Testosterone, Free 26.32 ng/dL (5.00-21.00)
== END | disposition home or self-care (01) ==
PROVIDERS: PCP Nurse Practitioner Family
DX: E29.1 Testicular hypofunction (principal); R94.6 Abnormal results of thyroid function studies
CPT/HCPCS: 36415; 80053; 80061; 84402; 84403; 84439; 84443; 85025